=== PATIENT | female | born 1980 | race Caucasian/White ===

== ENCOUNTER 2017-02-10 22:55 | Emergency (ER) | payer BC ==
[~2017-02-10] VITALS: Ht 149.9 cm; Wt 75.3 kg
[2017-02-10 23:04] VITALS: BP 146/78
--- NOTE | 2017-02-10 23:20 | NUR ---
36Y F PRESENTED TO ER C/O OF ABDOMINAL PAIN. NO DISTRESS NOTED. DENIES N/V. V/S WNL.
--- NOTE | 2017-02-10 23:21 | NUR ---
PT TAKEN TO XRAY
--- NOTE | 2017-02-10 23:29 | NUR ---
PT RETURN FROM XRAY
--- NOTE | 2017-02-10 23:30 | NUR ---
PT TAKEN TO BED 3
--- NOTE | 2017-02-10 23:40 | NUR ---
Dr. Fernandez evaluating patient at bedside.
[2017-02-10] MEDS ORDERED: PANTOPRAZOLE 40 MG TABEC PO ONE (23:45)
[2017-02-10 23:47] VITALS: BP 125/97
--- NOTE | 2017-02-10 23:47 | NUR ---
Patient discharged with v/s stable. Written and verbal after care instructions given and explained. Patient alert, oriented and verbalized understanding of instructions. Ambulatory with steady gait. All questions addressed prior to discharge. ID band removed. Patient advised to follow up with PMD. Rx of PROTONIX given. Patient educated on indication of medication including possible reaction and side effects. Opportunity to ask questions provided and answered.
== END 2017-02-10 23:47 | disposition home or self-care (01) ==
LOC: MED 22:55
DX: K29.70 Gastritis, unspecified, without bleeding (principal); R03.0 Elevated blood-pressure reading, without diagnosis of hypertension; R07.89 Other chest pain; R20.2 Paresthesia of skin; R06.02 Shortness of breath; Z88.6 Allergy status to analgesic agent
CPT/HCPCS: 71010; 93005; 99284